=== PATIENT | female | born 1985 | race Caucasian/White ===

== ENCOUNTER 2023-01-24 14:46 | Inpatient (IN) | payer OTHER, SELFPAY ==
[~2023-01-24 14:46] MED LIST: Bupivacaine 0.25% HCL 30 ML VIAL ONE
[2023-01-24] MEDS ORDERED: Lidocaine 1% (PF) 30 ML VIAL SC PRN (19:43)
[2023-01-24] MEDS ORDERED: HYDROcodone/Acetaminophen 5/325 mg Tablet PO PRN (19:43)
[2023-01-24] MEDS ORDERED: Zolpidem Tartrate 5 MG TAB PO PRN (19:43)
[2023-01-24] MEDS ORDERED: Promethazine HCl 25 MG/ML VIAL IM PRN (19:43)
[2023-01-24] MEDS ORDERED: Acetaminophen 500 MG TAB PO PRN (19:43)
[2023-01-24] MEDS ORDERED: Misoprostol 200 MCG TAB PR PRN (19:43)
[2023-01-24] MEDS ORDERED: Butorphanol Tartrate 1 MG/ML VIAL SLOW IVP PRN (19:43)
[2023-01-24] MEDS ORDERED: Methylergonovine 0.2 MG/ML VIAL IM PRN (19:43)
[2023-01-24] MEDS ORDERED: Diphenoxylate HCl/Atropine Tablet PO PRN (19:43)
[2023-01-24] MEDS ORDERED: Carboprost 250 MCG/ML AMP IM PRN (19:43)
[2023-01-24] MEDS ORDERED: Ibuprofen 800 MG TAB PO PRN (19:43)
[2023-01-24] MEDS ORDERED: hydrALAZINE 20 MG/ML VIAL SLOW IVP PRN (19:43)
[2023-01-24] MEDS ORDERED: Ondansetron PF 4 MG/2 ML Vial IVP PRN (19:43)
[2023-01-24 19:52] VITALS: BMI 29.7
[2023-01-24 20:09] LABS: Hemoglobin 12.6 g/dL (12.0-15.5); Mean Corpuscular HGB CONC 35.1 g/dL (32.0-36.0); Mean Corpuscular Hemoglobin 30.5 pg (27.0-33.0); Mean Corpuscular Volume 86.9 fl (81.6-98.3); Platelet Count 211 10x3/uL (150-450); Red Blood Cell (RBC) Count 4.13 10x6/uL (3.90-5.03); White Blood Cell (WBC) Count 9.2 10x3/uL (3.5-10.5)
[2023-01-24] MEDS ORDERED: NS w/ Oxytocin 30 units 500 ML IV SCH ×2 (20:15)
[2023-01-24] MEDS ORDERED: Lactated Ringer's 1,000 ML IV SCH (20:15)
[2023-01-24] MEDS: Misoprostol 100 MCG TAB VAG SCH (20:16)
[2023-01-24 20:38] LABS: HBSAg Index 0.16 S/CO (0-0.99); Hep B Surf Ag - L&D Non-Reactive S/CO (NonReactive)
[2023-01-24 20:40] LABS: Syphilis Antibody Nonreactive (Nonreactive); Syphilis Antibody Index 0.07 S/CO (<1.00 Non-Reactive)
[2023-01-24] MEDS ORDERED: Fentanyl 100 MCG/2 ML VIAL SLOW IVP PRN ×2 (23:06→23:16)
[2023-01-25] MEDS ORDERED: Fentanyl 2 mcg/Bup 0.1% Cadd 100 ML ONE (00:09)
[2023-01-25] MEDS ORDERED: Naloxone HCl 0.4 mg/ml Vial IVP PRN ×2 (00:42)
[2023-01-25] MEDS ORDERED: Promethazine HCl 25 MG/ML VIAL IM PRN (00:42)
[2023-01-25] MEDS ORDERED: Acetaminophen 325 MG TAB PO PRN (00:42)
[2023-01-25] MEDS ORDERED: Moisturizing Cream (Eucerin) 113 GM JAR TOP PRN (00:42)
[2023-01-25] MEDS ORDERED: Lactated Ringer's 500 ML IV PRN (00:42)
[2023-01-25] MEDS ORDERED: Ondansetron PF 4 MG/2 ML Vial IVP PRN (00:42)
[2023-01-25] MEDS ORDERED: diphenhydrAMINE 50 MG/ML VIAL IVP PRN (00:42)
[2023-01-25] MEDS ORDERED: ePHEDrine Sulfate 50 MG/10 ML VIAL SLOW IVP PRN (00:42)
[2023-01-25] MEDS ORDERED: Communication Order-Pharmacy FS SCH (00:45)
[2023-01-25] MEDS ORDERED: Fentanyl 2 mcg/Bupivacaine 0.1% Cassette 100 ML EPIDURAL SCH (00:45)
[2023-01-25] MEDS ORDERED: hydrALAZINE 20 MG/ML VIAL SLOW IVP PRN (02:19)
[2023-01-25] MEDS ORDERED: Boostrix 0.5 ML (Tdap) VIAL (>/=7 yrs of age) IM ONE (02:19)
[2023-01-25] MEDS ORDERED: Milk Of Magnesia 30 ML UDCUP PO PRN (02:19)
[2023-01-25] MEDS ORDERED: Bisacodyl 10 MG SUPP PR PRN (02:19)
[2023-01-25 04:38] LABS: Hemoglobin 12.5 g/dL (12.0-15.5)
[2023-01-25] MEDS: Ibuprofen 800 MG TAB PO SCH ×3 (05:23→23:12)
[2023-01-25] MEDS: Misoprostol 100 MCG TAB VAG SCH (07:43)
[2023-01-25] MEDS: Docusate 100 MG CAP PO SCH ×2 (08:51→21:55)
[2023-01-25] MEDS: Ferrous Sulfate 325 MG TAB PO SCH ×2 (09:08→16:02)
[2023-01-25] MEDS ORDERED: Benzocaine-Menthol 82.5 ML CAN TOP PRN (10:13)
[2023-01-25] MEDS ORDERED: HYDROcodone/Acetaminophen 5/325 mg Tablet PO PRN (17:30)
[2023-01-25] MEDS ORDERED: Witch Hazel-Glycerin 1 EACH JAR TOP PRN (21:35)
[2023-01-26] MEDS: Ibuprofen 800 MG TAB PO SCH ×2 (04:53→08:34)
[2023-01-26 08:10] VITALS: BP 105/56; TEMP 97.8
[2023-01-26] MEDS ORDERED: Ondansetron ODT 4 MG TAB PO SCH (08:30)
[2023-01-26] MEDS: Docusate 100 MG CAP PO SCH (08:34)
[2023-01-26] MEDS: Ferrous Sulfate 325 MG TAB PO SCH (08:37)
== END 2023-01-26 12:45 | disposition home or self-care (01) | DRG 807 ==
LOC: CSHLD 19:11 → CSHPP 01-25 03:55
PROVIDERS: ADMIT Student in an Organized Health Care Education/Training Program; ATTEND Student in an Organized Health Care Education/Training Program
PROC: 3E0P7VZ Introduction of Hormone into Female Reproductive, Via Natural or Artificial Opening (ICD-10-PCS; 2023-01-24)
PROC: 10E0XZZ Delivery of Products of Conception, External Approach (ICD-10-PCS; principal; 2023-01-25)
PROC: 0KQM0ZZ Repair Perineum Muscle, Open Approach (ICD-10-PCS; 2023-01-25)
DX: O70.1 Second degree perineal laceration during delivery (principal); Z37.0 Single live birth; Z3A.39 39 weeks gestation of pregnancy
CPT/HCPCS: 36415; 85014; 85018; 85027; 86780; 86850; 86900; 86901; 87340; J2405; J2590; J3010; Q0162; S0020